=== PATIENT | male | born 1950 ===

== ENCOUNTER 2023-04-23 05:45 | Day surgery (SDC) | payer OTHER ==
[2023-04-23] MEDS ORDERED: CEFTRIAXONE SODIUM 2,000 MG VIAL ONE (07:23)
[2023-04-23] MEDS ORDERED: METRONIDAZOLE/SODIUM CHLORIDE 500 MG/100 ML PIGGYBACK IV ONE ×2 (07:23→09:30)
[2023-04-23] MEDS ORDERED: BUPIVACAINE HCL/PF 0.5% 30ML ML ONE (07:33)
[2023-04-23] MEDS ORDERED: HEMOSTATIC MATRIX 1 KIT KIT TOP ONE ×2 (07:34→09:30)
[2023-04-23] MEDS ORDERED: POVIDONE-IODINE 118 ML BOTT TOP ONE ×2 (07:34→09:30)
[2023-04-23] MEDS ORDERED: DIBUCAINE 30 GM TUBE ONE (07:34)
[2023-04-23] MEDS ORDERED: LIDOCAINE HCL 1%/Epi 20ML VIAL IJ ONE ×2 (07:35→09:30)
[2023-04-23] MEDS ORDERED: COLACE100 MG PO (08:55)
[2023-04-23] MEDS ORDERED: TRAM1TAB98 PO (08:55)
[2023-04-23] MEDS ORDERED: DIBUCAINE 15 GM OINT..GM. TUBE RECTAL ONE (09:30)
[2023-04-23] MEDS ORDERED: CEFTRIAXONE SODIUM 2,000 MG VIAL IV ONE (09:30)
[2023-04-23] MEDS ORDERED: BUPIVACAINE HCL 30 ML VIAL IJ ONE (09:30)
== END 2023-04-23 14:30 | disposition home or self-care (01) ==
LOC: CIR.AMB 05:45
PROVIDERS: ATTEND Surgery
DX: C20 Malignant neoplasm of rectum (principal); K62.89 Other specified diseases of anus and rectum; D12.8 Benign neoplasm of rectum; I10 Essential (primary) hypertension; Z20.822 Contact with and (suspected) exposure to COVID-19